=== PATIENT | male | born 1940 | race African-American/Black ===

== ENCOUNTER 2021-10-25 08:34 | Inpatient (IN) | payer MEDICARE ==
[~2021-10-25] VITALS: Ht 175.3 cm; Wt 76.7 kg
--- NOTE | 2021-10-25 08:41 | NUR ---
TO ER BED 6. [id number] C/O SOB SATTING AT 90RA, 94 AT 15LPM, DIARRHEA, VOMITING X2DAYS TACHY AT 116. PT IS AFEBRILE 98.3 RECTALLY, A&OX3.DR BARAJAS AT BEDSIDE. PT ATTACHED TO MONITOR. RT AND DR BARAJAS AT BEDSIDE.
[2021-10-25] MEDS ORDERED: TOLT4CAP14 PO (08:42)
[2021-10-25] MEDS ORDERED: METF-442 PO (08:42)
[2021-10-25] MEDS ORDERED: HYDR-3980 PO (08:42)
[2021-10-25] MEDS ORDERED: ALFU10TA10 PO (08:42)
--- NOTE | 2021-10-25 08:46 | NUR ---
IV ESTABLIHSED L AC 18G, LABS DRAWN AND COLLECTED AT BEDSIDE. RAPID COVID COLLECTED AND SENT.
--- NOTE | 2021-10-25 08:50 | NUR ---
CAME AND RECEIVED THIS PATIENT FROM AM SHIFT. PATIENT IS ATTACHED TO MONITOR, WITH REBREATHER MASK AT 15LPM, WITH PERIPHERAL LINE ON LEFT AC G18 WITH ONGOING IVF INFUSION, SITE CLEAN AND INTACT, TRANSFUSING WELL. WITH IFC F16 NEWLY INSERTED.
--- NOTE | 2021-10-25 08:53 | NUR ---
16FRENCH MADRID CATHETER PLACED, 200CC URINE OUTPUT. URINE COLLECTED AND SENT TO LAB.
[2021-10-25 08:59] LABS: ABG BASE EXCESS -23.5 mmol/L; ABG PCO2 12.4 mmHg (35.0-45.0); ABG PH 7.095 (7.350-7.450); ABG PO2 261.9 mmHg (75.0-100.0); COHb 0.3 % (0.5-1.5); MetHb 0.6 % (0.0-1.5); O2Hb 98.5 % (94.0-97.0); SITE, ABG Right Radial
[2021-10-25] MEDS ORDERED: IV NS 0.9% 500 ML BAG IV ONE (09:00)
[2021-10-25] MEDS ORDERED: LIDOCAINE 2% JEL UROJET 10 ML MM ONE ×2 (09:01→09:30)
--- NOTE | 2021-10-25 09:15 | NUR ---
PATIENT WAS WHEELED TO CT DEPARTMENT.
[2021-10-25 09:20] LABS: BASOPHILS # (AUTO) 0.1 K/uL (0.0-0.2); BASOPHILS % (AUTO) 0.4 % (0.0-2.0); HEMATOCRIT 55 % (39-51); HEMOGLOBIN 16.4 g/dL (13.5-17.5); LYMPHOCYTES # (AUTO) 0.5 K/uL (0.8-4.8); LYMPHOCYTES % (AUTO) 2.9 % (20.0-44.0); MEAN CORPUSCULAR HGB CONC 30 g/dl (31.0-36.0); MEAN CORPUSCULAR VOLUME 97 fL (80-96); MONOCYTES # (AUTO) 1.1 K/uL (0.1-1.30); MONOCYTES % (AUTO) 6.7 % (2.0-12.0); PLATELET COUNT (AUTO) 360 K/uL (150-450); RED BLOOD CELL COUNT(AUTO) 5.68 MIL/uL (4.5-6.0); WHITE BLOOD COUNT (AUTO) 16.7 K/uL (4.3-11.0)
[2021-10-25] MEDS ORDERED: IV NS 0.9% 1,000 ML BAG IV ONE (09:30)
[2021-10-25 09:40] LABS: BILIRUBIN,URINE SMALL (NEGATIVE); COLOR,URINE YELLOW (YELLOW); LEUKOCYTE ESTERASE ,URINE NEGATIVE (NEGATIVE); NITRITE, URINE POSITIVE (NEGATIVE); PH,URINE 5.5 (5.0-8.0); PROTEIN,URINE TRACE mg/dl (NEGATIVE); UGLUCOSE >=1000 mg/dL (NEGATIVE); UROBILINOGEN,URINE 0.2 EU/dL (0.2)
[2021-10-25 10:20] LABS: ALANINE AMINOTRANSFERASE 16 U/L (12-78); ALBUMIN 3.9 g/dL (3.4-5.0); ALKALINE PHOSPHATASE 98 U/L (46-116); ASPARTATE AMINOTRANSFERASE 13 U/L (15-37); BILIRUBIN,DIRECT 0.1 mg/dL (0.0-0.2); BILIRUBIN,TOTAL 0.5 mg/dL (0.2-1.0); CALCIUM, SERUM 9.2 mg/dL (8.5-10.1); CHLORIDE 84 mmol/L (98-107); CREATININE 3.6 mg/dL (0.6-1.3); SODIUM SERUM 135 mmol/L (136-145); TOTAL PROTEIN, SERUM 8.9 g/dL (6.4-8.2); UREA NITROGEN, BLOOD 50 mg/dL (7-18)
--- NOTE | 2021-10-25 10:29 | NUR ---
RACHELL RYDER [phone].
[2021-10-25 10:45] LABS: POTASSIUM 6.5 mmol/L (3.5-5.1)
[2021-10-25 10:46] LABS: CARBON DIOXIDE 5 mmol/L (21-32); GLUCOSE 835 mg/dL (74-106)
--- NOTE | 2021-10-25 10:51 | NUR ---
DR. BARAJAS INFORMED ABOUT CRITICAL RESULTS WITH ORDERS TO BE CARRIED OUT.
[2021-10-25] MEDS ORDERED: FUROSEMIDE 20 MG/2 ML VIAL ONE (10:55)
[2021-10-25] MEDS ORDERED: SODIUM BICARBONATE SYR 50 MEQ/50 ML DISP.SYRIN ONE (10:55)
[2021-10-25] MEDS ORDERED: INSULIN REGULAR, HUMAN 100 UNIT/ML 10 ML VIAL ONE (10:56)
[2021-10-25] MEDS ORDERED: FUROSEMIDE 40 MG/4 ML VIAL IV ONE (11:00)
[2021-10-25] MEDS ORDERED: IV NS 0.9% 1,000 ML IV PRN (11:00)
[2021-10-25] MEDS ORDERED: SODIUM BICARBONATE SYR 50 MEQ/50 ML DISP.SYRIN IV ONE (11:00)
[2021-10-25] MEDS: INSULIN REGULAR, HUMAN 100 UNITS in IV NS 0.9% 100 ML IV PRN ×4 (11:21→22:43)
--- NOTE | 2021-10-25 11:22 | NUR ---
INSULIN DRIP STARTED AT 5.05ML/HR, COUNTER SIGNED BY VINNY MURILLO
--- NOTE | 2021-10-25 11:23 | NUR ---
LASIX ORDER WAS PUT ON HOLD
[2021-10-25] MEDS ORDERED: CEFTRIAXONE 1GM BAG (ER ONLY) 1 GM/50 ML PIGGYBACK IV ONE (11:30)
[2021-10-25] MEDS ORDERED: ALBUTEROL FS 2.5 MG/3 ML VIAL.NEB ONE (11:36)
[2021-10-25] MEDS ORDERED: IPRATROPIUM NEB FS 0.5 MG/2.5 ML AMPUL.NEB ONE (11:36)
[2021-10-25] MEDS ORDERED: CEFTRIAXONE 1GM BAG (ER ONLY) 50 ML IV ONE (11:44)
[2021-10-25 11:46] LABS: RBC,URINE 0-2 /HPF (0-2); SQUAMOUS EPITHELIAL CELL,UR Rare /HPF (None Seen); WBC,URINE 0-2 /HPF (0-3)
[2021-10-25 11:47] LABS: BACTERIA,URINE Few /HPF (None Seen)
[2021-10-25 12:04] LABS: CALCIUM, SERUM 9.1 mg/dL (8.5-10.1); CHLORIDE 86 mmol/L (98-107); CREATININE 3.1 mg/dL (0.6-1.3); POTASSIUM 5.9 mmol/L (3.5-5.1); SODIUM SERUM 138 mmol/L (136-145); UREA NITROGEN, BLOOD 50 mg/dL (7-18)
--- NOTE | 2021-10-25 12:15 | NUR ---
ACCUCHECK DONE LATEST RESULT= HI. DR BARAJAS INFORMED
[2021-10-25 13:29] LABS: CARBON DIOXIDE 10 mmol/L (21-32); GLUCOSE 794 mg/dL (74-106)
[2021-10-25 13:30] LABS: PHOSPHORUS 8.4 mg/dL (2.5-4.9)
[2021-10-25] MEDS ORDERED: INSULIN REGULAR, HUMAN 100 UNIT in IV NS 0.9% 99 ML IV PRN ×2 (13:30)
[2021-10-25] MEDS ORDERED: ONDANSETRON HCL/PF 4 MG/2 ML VIAL IVP PRN (13:30)
[2021-10-25] MEDS ORDERED: MAGNESIUM HYDROXIDE 30 ML UDC PO PRN (13:30)
[2021-10-25] MEDS ORDERED: MAG HYDROX/AL HYDROX/SIMETH 30 ML UDC PO PRN (13:30)
[2021-10-25] MEDS ORDERED: ACETAMINOPHEN 325 MG TABLET PO PRN (13:30)
[2021-10-25] MEDS ORDERED: DEXTROSE 50%-WATER 50 ML DISP.SYRIN IV PRN (13:30)
[2021-10-25] MEDS ORDERED: Z GUARD REMEDY 4 OZ OINT TP PRN (13:30)
--- NOTE | 2021-10-25 14:00 | NUR ---
REPEAT ACCUCHECK DONE. RESULT HI. DR BARAJAS ORDERED TO INCREASE RATE TO 7UNITS/HR.
[2021-10-25 14:17] LABS: CALCIUM, SERUM 9.1 mg/dL (8.5-10.1); CHLORIDE 90 mmol/L (98-107); CREATININE 3.3 mg/dL (0.6-1.3); MAGNESIUM 3.1 mg/dL (1.8-2.4); PHOSPHORUS 7.3 mg/dL (2.5-4.9); POTASSIUM 5.3 mmol/L (3.5-5.1); SODIUM SERUM 140 mmol/L (136-145); UREA NITROGEN, BLOOD 52 mg/dL (7-18)
--- NOTE | 2021-10-25 14:19 | NUR ---
2DECHO AT BEDSIDE
[2021-10-25] MEDS: BLOOD SUGAR DIAGNOSTIC 1 EACH STRIP IN SCH ×10 (14:27→23:09)
[2021-10-25 14:37] LABS: CARBON DIOXIDE 9 mmol/L (21-32); GLUCOSE 922 mg/dL (74-106)
[2021-10-25 14:41] LABS: ACETAMINOPHEN < 10 ug/ml (10-30)
[2021-10-25 14:58] LABS: SERUM AMMONIA 276 umol/L (11-32)
--- NOTE | 2021-10-25 15:07 | NUR ---
DR HUIZAR CALL AND HE SAID JUST TO WATCH OUT FOR THE RESULT FOR AWHILE.
[2021-10-25] MEDS ORDERED: HEPARIN SODIUM, PORCINE 5000 UNITS/1 ML VIAL IV ONE ×2 (15:30→17:00)
--- NOTE | 2021-10-25 15:45 | NUR ---
DOUBLE CHECKED WITH PHARMACY THE INITIAL BOLUS DOSE. THEY WILL CHANGE FROM 6,200 TO 6,400units/hr
[2021-10-25] MEDS ORDERED: HEPARIN SODIUM, PORCINE 5000 UNITS/1 ML VIAL ONE (15:52)
[2021-10-25 15:55] LABS: CALCIUM, SERUM 8.7 mg/dL (8.5-10.1); CARBON DIOXIDE 12 mmol/L (21-32); CHLORIDE 97 mmol/L (98-107); CREATININE 3.3 mg/dL (0.6-1.3); PHOSPHORUS 3.5 mg/dL (2.5-4.9); POTASSIUM 3.8 mmol/L (3.5-5.1); SODIUM SERUM 143 mmol/L (136-145); UREA NITROGEN, BLOOD 51 mg/dL (7-18)
[2021-10-25 16:00] LABS: GLUCOSE 694 mg/dL (74-106)
[2021-10-25] MEDS: IV NS 0.9% 1,000 ML IV SCH ×3 (16:00→23:16)
--- NOTE | 2021-10-25 16:00 | NUR ---
HEPARIN 6,400units iv bolus given. THEN DRIP STARTED AT 1450units/hr.
--- NOTE | 2021-10-25 16:00 | NUR ---
DR HUIZAR MADE AWARE ABOUT LATEST FR=560nk/dl, with ongoing insulin infusion at 7u/hr
[2021-10-25] MEDS: HEPARIN INFUSION/D5W 500 ML IV PRN ×2 (16:44→22:49)
--- NOTE | 2021-10-25 17:13 | NUR ---
ACCUCHECK 583mg/dl, 4 units Regular Insulin given at LLQ of abdomen.
--- NOTE | 2021-10-25 18:00 | NUR ---
LATEST ACCUCHECK 596. INCREASE INSULIN DRIP TO 8u/hr. GAVE 4u REGULAR INSULIN SQ ON LLQ ABDOMEN.
--- NOTE | 2021-10-25 19:00 | NUR ---
ACCUCHECK BS 545mg/dl, 4 units regular insulin sq given RLQ ABDOMEN. still with insulin drip at 8u/hr.
--- NOTE | 2021-10-25 20:01 | NUR ---
ACCUCHECK DONE BS 457mg/dl. Infusion drip maintained to 8u/hr.
--- NOTE | 2021-10-25 20:04 | NUR ---
noted by quincy: 457, MD Yo notified.
--- NOTE | 2021-10-25 20:08 | NUR ---
ICU 253 PER RN EMERGENCY MANAGEMENT SYSTEM DIRECTOR
--- NOTE | 2021-10-25 21:00 | NUR ---
REPORT GIVEN TO VINNY BLANCO
[2021-10-25] MEDS ORDERED: ZOLPIDEM TARTRATE 5 MG TABLET PO PRN (22:00)
--- NOTE | 2021-10-25 22:46 | NUR ---
PUSHED PATIENT TO RM 253.
--- NOTE | 2021-10-25 22:50 | NUR ---
RN NOTE RECEIVED PATIENT FROM ER. ARRIVED VIA GURNEY. PATIENT ALERT ORIENTED X1. LETHARGIC, UNABLE TO ANSWER QUESTIONS AT THIS TIME. BREATHING EVEN AND UNLABORED. ON 2L/MIN VIA NASAL CANNULA. O2 SATURATION OF 100 PERCENT. ON TELE MONITORING, NO SIGNIFICANT DISTRESS. SKIN WARM AND DRY. RIGHT FOREARM 20G AND LEFT AC 20G, CURRENTLY INFUSING INSULIN REGULAR AT 7.1 MLS/HR & HEPARIN AT 1450 UNITS/HR. NO INFILTRATION. NO S/S OF BLEEDING ACCUCHECK MEASURED, 355. INDWELLING MADRID CATHETER INTACT, NO HEMATURIA. DRAINING NIRMAL COLORED URINE. SKIN ASSESSMENT DONE. BED LOW, IN LOCKED POSITION. CALL LIGHT WITHIN REACH.
[2021-10-25 23:01] VITALS: BP 137/78
--- NOTE | 2021-10-25 23:16 | NUR ---
RN NOTE BS 295 INSULIN DRIP REDUCED TO 5.9 UNITS/HR FROM 7.1 UNITS/HR
[2021-10-25 23:30] VITALS: BP 130/76
[2021-10-26] VITALS (28 sets, daily range): BP systolic 124–160; BP diastolic 65–115
[2021-10-26] MEDS: BLOOD SUGAR DIAGNOSTIC 1 EACH STRIP IN SCH ×15 (00:02→21:22)
--- NOTE | 2021-10-26 00:13 | NUR ---
RN NOTE RECIEVED CALL FROM LAB AT 0010, APTT OF 98.9. PER PROTOCOL, HOLD HEPARIN FOR 1 HOUR, THEN DECREASE DRIP BY 3 UNITS/KG/H = 1200 UNITS/H
[2021-10-26 01:08] LABS: CALCIUM, SERUM 9.1 mg/dL (8.5-10.1); CARBON DIOXIDE 24 mmol/L (21-32); CHLORIDE 106 mmol/L (98-107); CREATININE 2.6 mg/dL (0.6-1.3); GLUCOSE 298 mg/dL (74-106); SODIUM SERUM 147 mmol/L (136-145); UREA NITROGEN, BLOOD 45 mg/dL (7-18)
[2021-10-26] MEDS: IV D5/0.45 NACL 1,000 ML IV PRN ×2 (02:03→12:08)
--- NOTE | 2021-10-26 02:07 | NUR ---
RN NOTE BLOOD SUGAR 190. PER MD ORDER, SWITCH IVF TO D5 1/2 NS AT 100 CC/HR. NEW ORDER NOTED AND CARRIED OUT.
[2021-10-26 05:34] LABS: BASOPHILS # (AUTO) 0.1 K/uL (0.0-0.2); BASOPHILS % (AUTO) 0.5 % (0.0-2.0); HEMATOCRIT 46 % (39-51); LYMPHOCYTES # (AUTO) 0.5 K/uL (0.8-4.8); LYMPHOCYTES % (AUTO) 2.4 % (20.0-44.0); MEAN CORPUSCULAR HGB CONC 32 g/dl (31.0-36.0); MEAN CORPUSCULAR VOLUME 88 fL (80-96); MONOCYTES # (AUTO) 1.7 K/uL (0.1-1.30); MONOCYTES % (AUTO) 8.7 % (2.0-12.0); NEUTROPHILS # (AUTO) 17.2 K/uL (1.8-8.9); NEUTROPHILS % (AUTO) 88.4 % (43.0-81.0); PLATELET COUNT (AUTO) 253 K/uL (150-450); RED BLOOD CELL COUNT(AUTO) 5.26 MIL/uL (4.5-6.0); WHITE BLOOD COUNT (AUTO) 19.5 K/uL (4.3-11.0)
[2021-10-26 05:57] LABS: CALCIUM, SERUM 8.6 mg/dL (8.5-10.1); CARBON DIOXIDE 27 mmol/L (21-32); CHLORIDE 109 mmol/L (98-107); CREATININE 2.3 mg/dL (0.6-1.3); GLUCOSE 213 mg/dL (74-106); MAGNESIUM 2.6 mg/dL (1.8-2.4); PHOSPHORUS 2.9 mg/dL (2.5-4.9); POTASSIUM 3.8 mmol/L (3.5-5.1); SODIUM SERUM 149 mmol/L (136-145); UREA NITROGEN, BLOOD 43 mg/dL (7-18)
[2021-10-26] MEDS: HEPARIN SODIUM, PORCINE 5000 UNITS/1 ML VIAL SQ SCH ×2 (09:00→21:25)
[2021-10-26 09:21] LABS: CALCIUM, SERUM 9.1 mg/dL (8.5-10.1); CARBON DIOXIDE 24 mmol/L (21-32); CHLORIDE 108 mmol/L (98-107); CREATININE 2.1 mg/dL (0.6-1.3); GLUCOSE 209 mg/dL (74-106); POTASSIUM 3.6 mmol/L (3.5-5.1); SODIUM SERUM 144 mmol/L (136-145); UREA NITROGEN, BLOOD 40 mg/dL (7-18)
--- NOTE | 2021-10-26 11:56 | NUR ---
RN NOTE RECEIVED CALL FROM LAB, CRITICAL VALUE APTT 103.6. PT HEPARIN ALREADY D/C.
--- NOTE | 2021-10-26 11:57 | NUR ---
RN NOTE PT NOTED VOMITING DARK COFFEE GROUND CONSISTENCY OF ABOUT 50CC. CN MADE AWARE. WILL CONTINUE TO MONITOR. V/S WNL. ABD SOFT TO PALPATE. PT NOT IN DISTRESS, NO COMPLAINTS OF ABD PAIN.
[2021-10-26] MEDS ORDERED: DEXTROSE 50%-WATER 50 ML DISP.SYRIN IV PRN (13:30)
[2021-10-26 13:32] LABS: CARBON DIOXIDE 24 mmol/L (21-32); CHLORIDE 108 mmol/L (98-107); GLUCOSE 214 mg/dL (74-106); POTASSIUM 3.4 mmol/L (3.5-5.1); SODIUM SERUM 145 mmol/L (136-145); UREA NITROGEN, BLOOD 36 mg/dL (7-18)
[2021-10-26] MEDS ORDERED: AMIODARONE 150 MG in IV D5W 100 ML IV ONE (14:00)
--- NOTE | 2021-10-26 14:31 | NUR ---
RN NOTE AMIO DRIP LOADING DOSE 150MG STARTED, BP-127/91 HR-149. WILL CONTINUE TO MONITOR
[2021-10-26] MEDS: AMIODARONE 450 MG in IV D5W 241 ML IV PRN ×2 (14:44→22:40)
[2021-10-26] MEDS: INSULIN REGULAR, HUMAN 100 UNIT/ML 3 ML VIAL SQ PRN ×2 (18:09→21:24)
--- NOTE | 2021-10-26 19:20 | NUR ---
RN NOTE PT RESTING IN BED, STILL NOTED LETHARGIC. ON O2 @2L VIA NC. NOT IN RESPI DISTRESS. WITH IV ACCESS ON RFA AND LAC WITH IVF RUNNING D51/2NS @100/HR. PT ON AMIO DRIP @1MG/MIN.NEEDS ATTENDED. SAFETY MAINTAINED.
--- NOTE | 2021-10-26 20:00 | NUR ---
ICU NOTES Received patient lethargic arousable oriented x1.Patient reoriented to place and time.DX: DKA,AFIB with RVR Cooperative.Afebrile.Respiration even and unlabored with O2 2L NC saturation 98 %.Afib with RVR 120'S.Continue with Amiodarone gtt now infusing at 1 mg/min untill 2043 then will titrate down to 0.5 mg/min.Denies pain or any discomfort.IVF D5 1/2 NS infusing both sites intact.Offered water able to drink good amount and fall back to sleep.Fall/Aspiration precaution implemented.Bed in lowest position bed alarm operations representative light at bedside.FC to gravity.Turned and repositioned.Continue monitoring.
--- NOTE | 2021-10-26 21:35 | NUR ---
ICU NOTES Patient rhythm converted to SR. VS stable.
[2021-10-27] VITALS (31 sets, daily range): BP systolic 91–173; BP diastolic 61–99
[2021-10-27] MEDS: IV D5/0.45 NACL 1,000 ML IV PRN (02:59)
--- NOTE | 2021-10-27 04:38 | NUR ---
ICU NOTES Patient BP elevated 170's.Jordan Colon notified.Orders received and carried out.
[2021-10-27 04:59] LABS: BASOPHILS % (AUTO) 0.1 % (0.0-2.0); HEMATOCRIT 43 % (39-51); LYMPHOCYTES # (AUTO) 0.7 K/uL (0.8-4.8); MEAN CORPUSCULAR HGB CONC 33 g/dl (31.0-36.0); MEAN CORPUSCULAR VOLUME 88 fL (80-96); MONOCYTES # (AUTO) 1.4 K/uL (0.1-1.30); MONOCYTES % (AUTO) 10.6 % (2.0-12.0); NEUTROPHILS # (AUTO) 11.1 K/uL (1.8-8.9); NEUTROPHILS % (AUTO) 84.3 % (43.0-81.0); PLATELET COUNT (AUTO) 219 K/uL (150-450); RED BLOOD CELL COUNT(AUTO) 4.81 MIL/uL (4.5-6.0); WHITE BLOOD COUNT (AUTO) 13.2 K/uL (4.3-11.0)
[2021-10-27] MEDS ORDERED: hydrALAZINE HCL IV 20 MG VIAL IV PRN (05:00)
[2021-10-27 05:12] LABS: ALANINE AMINOTRANSFERASE 14 U/L (12-78); ALBUMIN 2.9 g/dL (3.4-5.0); ALKALINE PHOSPHATASE 84 U/L (46-116); ASPARTATE AMINOTRANSFERASE 18 U/L (15-37); BILIRUBIN,TOTAL 0.6 mg/dL (0.2-1.0); CALCIUM, SERUM 8.6 mg/dL (8.5-10.1); CARBON DIOXIDE 25 mmol/L (21-32); CHLORIDE 107 mmol/L (98-107); CREATININE 1.7 mg/dL (0.6-1.3); MAGNESIUM 2.5 mg/dL (1.8-2.4); PHOSPHORUS 2.6 mg/dL (2.5-4.9); POTASSIUM 3.5 mmol/L (3.5-5.1); SODIUM SERUM 144 mmol/L (136-145); UREA NITROGEN, BLOOD 30 mg/dL (7-18)
[2021-10-27 05:35] LABS: GLUCOSE 381 mg/dL (74-106)
--- NOTE | 2021-10-27 05:45 | NUR ---
ICU NOTES sound recording technician called regarding patient blood sugar this morning 381.Called TONNY Parra and made him aware patient on IVF of D5 1/2 NS.Order received to change it to NS 100 ML/HR.
[2021-10-27] MEDS: IV NS 0.9% 1,000 ML IV SCH ×2 (05:52→15:29)
--- NOTE | 2021-10-27 07:05 | NUR ---
RN NOTES Received patient on bed, lethargic arousable oriented x1. follows simple command ,Respiration even and unlabored with O2 2L NC saturation 98 %. sr on monitor , hr in 80's , Continue with Amiodarone gtt now infusing at .5 mg/min , Denies pain or any discomfort.IVF NS infusing at 100cc/hr , Fall/Aspiration precaution implemented.Bed in lowest position bed alarm impregnation operator light at bedside.FC to gravity.Turned and repositioned.Continue monitoring.
[2021-10-27] MEDS: INSULIN REGULAR, HUMAN 100 UNIT/ML 3 ML VIAL SQ PRN ×4 (07:42→23:20)
[2021-10-27] MEDS: BLOOD SUGAR DIAGNOSTIC 1 EACH STRIP IN SCH ×4 (07:45→22:37)
[2021-10-27] MEDS: AMIODARONE HCL 200 MG TABLET PO SCH ×3 (08:46→16:37)
[2021-10-27] MEDS: APIXABAN 2.5 MG TABLET PO SCH ×2 (08:46→16:37)
[2021-10-27] MEDS: INSULIN GLARGINE, 100 UNIT/ML CARTRIDGE SQ SCH ×2 (15:38→22:38)
--- NOTE | 2021-10-27 17:35 | NUR ---
RN NOTES PT TRANSFERED TO ROOM 116-1 , TELE BED, VIA ACLS PROTOCAL , REPORT GIVEN TO JESÚS CASILLAS FOR CONTINUITY OF CARE
--- NOTE | 2021-10-27 17:45 | NUR ---
RN NOTE RECEIVED PATIENT FROM ICU. BEDSIDE REPORT RECEIVED FROM REESE CASILLAS. PATIENT AWAKE, ALERT/ORIENTED X1. ON O2 2LPM VIA NC, TOLERATING WELL WITH SATURATION OF 99%. BREATHING EVEN AND UNLABORED. NO SOB OR ANY ACUTE DISTRESS NOTED. ON TELE MONITOR READING NSR WITH HR OF 84. PATIENT REMAINS AFEBRILE. VITAL SIGNS: TEMP-98.4, HR-84, RR-20, BP-157/87. KEPT PATIENT CLEAN DRY AND COMFORTABLE. ALL NEEDS ANTICIPATED. ALL SAFETY MEASURES IMPLEMENTED. HOB ELEVATED, BED LOCKED AND IN LOWEST POSITION WITH SIDE RAILS UP X 2, CALL LIGHT WITHIN REACH. BED ALARM ON. WILL CONTINUE TO MONITOR AND ASSESS PATIENT DURING SHIFT.
--- NOTE | 2021-10-27 19:22 | NUR ---
RN CLOSING NOTES NO SIGNIFICANT CHANGES THROUGHOUT SHIFT. PATIENT REMAINS IN STABLE CONDITION. PATIENT IN BED RESTING. PATIENT ON O2 2LPM VIA NC, TOLERATING WELL. BREATHING EVEN AND UNLABORED. NO SOB OR ANY ACUTE DISTRESS NOTED. IV ACCESS ON RIGHT HAND AND GERALDINE MIDLINE INFUSING NS AT 100 ML/HR, NO SIGNS OF INFILTRATION NOTED ON SITE. ALL NEEDS ANTICIPATED. KEPT PATIENT CLEAN DRY AND COMFORTABLE. ALL SAFETY MEASURES IMPLEMENTED. CALL LIGHT WITHIN REACH. ENDORSED TO RESEARCH SCHOLAR NURSE FOR CONTINUITY OF CARE.
--- NOTE | 2021-10-27 21:33 | NUR ---
recyclable materials distributor Opening Note Pt received in bed, asleep, did not respond when introduced self. Pt on 2L NC; no s/s of resp distress, no SOB, non-labored and equal breathing; appears comfortable. Pt on external monitor that shows Aflutter but goes back to SE, HR in the 90s. Travis intact and patent draining off side of bed with clear and yellow urine. Pt noted to have GERALDINE midline and right hand 22G SL; both are intact and patent with no s/s of infiltration; NS at 100 ml/hr. Bed in lowest position, call light within reach, side rails up x3. Will continue to monitor throughout the night.
[2021-10-28] VITALS: BP 153/84
[2021-10-28] MEDS: IV NS 0.9% 1,000 ML IV SCH ×3 (03:29→22:07)
[2021-10-28 04:00] VITALS: BP 144/80
--- NOTE | 2021-10-28 06:50 | NUR ---
data typist Closing Note Pt in bed, A&O x3, pt noted to fall asleep during middle of conversation. Pt remains on 2L NC; no s/s of resp distress, no SOB, non-labored and equal breathing. Pt continues to go back and forth between Aflutter and SR, HR 82-93. Travis intact and patent draining off side of bed with clear and yellow urine. Pt's GERALDINE midline and right hand 22G SL; both are intact and patent with no s/s of infiltration; NS at 100 ml/hr. Bed in lowest position, call light within reach, side rails up x3. Will endorse to dayshift nurse to continue care.
[2021-10-28 07:04] LABS: BASOPHILS % (AUTO) 0.3 % (0.0-2.0); EOSINOPHILS % (AUTO) 0.3 % (0.0-6.0); HEMATOCRIT 40 % (39-51); HEMOGLOBIN 13.3 g/dL (13.5-17.5); LYMPHOCYTES # (AUTO) 0.7 K/uL (0.8-4.8); LYMPHOCYTES % (AUTO) 7.7 % (20.0-44.0); MEAN CORPUSCULAR HGB CONC 33 g/dl (31.0-36.0); MEAN CORPUSCULAR VOLUME 88 fL (80-96); MONOCYTES # (AUTO) 0.7 K/uL (0.1-1.30); MONOCYTES % (AUTO) 8.1 % (2.0-12.0); NEUTROPHILS # (AUTO) 7.2 K/uL (1.8-8.9); NEUTROPHILS % (AUTO) 83.6 % (43.0-81.0); PLATELET COUNT (AUTO) 178 K/uL (150-450); WHITE BLOOD COUNT (AUTO) 8.6 K/uL (4.3-11.0)
[2021-10-28 07:43] LABS: ALBUMIN 2.5 g/dL (3.4-5.0); BILIRUBIN,TOTAL 0.7 mg/dL (0.2-1.0); CREATININE 1.1 mg/dL (0.6-1.3); MAGNESIUM 2.3 mg/dL (1.8-2.4); PHOSPHORUS 2.3 mg/dL (2.5-4.9); POTASSIUM 3.2 mmol/L (3.5-5.1); TOTAL PROTEIN, SERUM 6.2 g/dL (6.4-8.2)
--- NOTE | 2021-10-28 07:55 | NUR ---
DR CATALAN MADE AWARE REGARDING HEART RHYTHM AFIB/ALUTTER/SINUS RHYTHM FLUCTUATION.
[2021-10-28 08:00] VITALS: BP 154/78
[2021-10-28] MEDS: BLOOD SUGAR DIAGNOSTIC 1 EACH STRIP IN SCH ×4 (08:11→21:37)
[2021-10-28] MEDS: AMIODARONE HCL 200 MG TABLET PO SCH ×3 (09:04→17:10)
[2021-10-28] MEDS: APIXABAN 2.5 MG TABLET PO SCH ×2 (09:06→17:12)
[2021-10-28] MEDS: INSULIN REGULAR, HUMAN 100 UNIT/ML 3 ML VIAL SQ PRN ×4 (09:11→21:36)
[2021-10-28] MEDS: POTASSIUM CHLORIDE 20 MEQ TAB.PRT.SR PO SCH ×3 (09:21→11:28)
[2021-10-28] MEDS: NEUTRA PHOS 1 POWD.PACKET PO SCH ×2 (09:24→17:13)
--- NOTE | 2021-10-28 10:25 | NUR ---
DR CATALAN MADE AWARE REGARDING HEART RHYTHM AFIB/AFLUTTER/SINUS RHYTHM FLUCTUATION AGAIN
[2021-10-28 12:00] VITALS: BP 129/69
[2021-10-28] MEDS: DIGOXIN INJ 0.5 MG/2 ML AMPUL IV SCH ×3 (12:30→23:15)
[2021-10-28 16:00] VITALS: BP 136/69
--- NOTE | 2021-10-28 19:25 | NUR ---
RN NOTE PT RECEIVED IN BED. PT IS ON 2L OF O2 VIA NC SHOWING NO S/SX OF RESP DISTRESS/SOB. BREATHING EVEN AND UNLABORED. IV ACCESS NOTED ON RIGHT UPPER ARM ML AND RIGHT HAND. LINE FLUSHED, PATENT, AND INTACT WITH NO SIGNS OF INFILTRATION. 0.9% NS RUNNING AT 100 CC/HR. ALL SAFETY MEASURES IMPLEMENTED. CALL LIGHT WITHIN REACH. BED LOCKED AND IN LOWEST POSITION. SIDE RAILS UP. WILL CONTINUE TO MONITOR AND ASSESS FOR ANY CHANGES DURING SHIFT.
[2021-10-28 20:00] VITALS: BP_SYST 139; BP_SYST 91; BP_DIAS 66; BP_DIAS 67
[2021-10-28] MEDS: INSULIN GLARGINE, 100 UNIT/ML CARTRIDGE SQ SCH (21:37)
[2021-10-29] VITALS: BP 134/65
[2021-10-29 04:00] VITALS: BP 127/62
--- NOTE | 2021-10-29 06:23 | NUR ---
RN NOTE NO CHANGES IN PT CONDITION DURING SHIFT. PT IS ON 2L OF O2 VIA NC SHOWING NO S/SX OF RESP DISTRESS/SOB. BREATHING EVEN AND UNLABORED. PT IS A/XO2-3. IV ACCESS NOTED ON RIGHT UPPER ARM ML AND RIGHT HAND WITH 0.9% NS RUNNING AT 100 CC/HR. ALL SAFETY MEASURES IMPLEMENTED. PT KEPT CLEAN AND COMFORTABLE. ALL DUE MEDS GIVEN ORDERED. CALL LIGHT WITHIN REACH. BED LOCKED AND IN LOWEST POSITION. SIDE RAILS UP. WILL ENDORSE TO MORNING SHIFT RN FOR NORMA.
--- NOTE | 2021-10-29 07:30 | NUR ---
ACCOUNTS PAYABLES CLERK AM NOTE PT RECEIVED IN BED. EYES CLOSED, RESPONDS TO NAME AND TOUCH, ALERT ORIENTED X 2-3. ON 2L O2 NASAL CANULA, O2 SAT AT 98%, NO ACUTE DISTRESS, RESPIRATION UNLABORED, DENIES CHEST PAIN/DISCOMFORT, SR HR 68 ON MONITOR. GERALDINE MIDLINE WITH NS AT 100 ML/HR INFUSING WELL, RT HAND 22G, IV ACCESS, FLUSHES WELL, BOTH SITES CLEAR. ON CCHO DIET. TOTAL ASSIST. SEE NURSING FLOWSHEET FOR SKIN ISSUES. MADRID CATH IN PLACE WITH ADEQUATE AMOUNT OF URINE OUTPUT. ALL SAFETY PRECAUTIONS IN PLACE. BED LOCKED IN LOWEST POSITION, BED ALARM ON. CALL LIGHT WITHIN REACH. WILL TURN AND REPOSITION Q 2 HOURS. WILL CONTINUE TO MONITOR.
[2021-10-29 07:40] LABS: BASOPHILS % (AUTO) 0.2 % (0.0-2.0); EOSINOPHILS % (AUTO) 0.7 % (0.0-6.0); HEMATOCRIT 40 % (39-51); HEMOGLOBIN 13.2 g/dL (13.5-17.5); LYMPHOCYTES # (AUTO) 0.6 K/uL (0.8-4.8); LYMPHOCYTES % (AUTO) 6.7 % (20.0-44.0); MEAN CORPUSCULAR HGB CONC 33 g/dl (31.0-36.0); MEAN CORPUSCULAR VOLUME 87 fL (80-96); MONOCYTES # (AUTO) 0.7 K/uL (0.1-1.30); MONOCYTES % (AUTO) 7.8 % (2.0-12.0); NEUTROPHILS # (AUTO) 8.1 K/uL (1.8-8.9); NEUTROPHILS % (AUTO) 84.6 % (43.0-81.0); PLATELET COUNT (AUTO) 168 K/uL (150-450); RED BLOOD CELL COUNT(AUTO) 4.58 MIL/uL (4.5-6.0); WHITE BLOOD COUNT (AUTO) 9.6 K/uL (4.3-11.0)
[2021-10-29 08:00] VITALS: BP 122/66
[2021-10-29] MEDS: IV NS 0.9% 1,000 ML IV SCH (08:04)
[2021-10-29] MEDS: BLOOD SUGAR DIAGNOSTIC 1 EACH STRIP IN SCH ×4 (08:04→21:16)
[2021-10-29] MEDS: INSULIN REGULAR, HUMAN 100 UNIT/ML 3 ML VIAL SQ PRN ×2 (08:32→21:19)
[2021-10-29] MEDS: AMIODARONE HCL 200 MG TABLET PO SCH ×3 (08:33→17:52)
[2021-10-29] MEDS: APIXABAN 2.5 MG TABLET PO SCH ×2 (08:35→17:55)
[2021-10-29 08:42] LABS: ALANINE AMINOTRANSFERASE 8 U/L (12-78); ALBUMIN 2.1 g/dL (3.4-5.0); ALKALINE PHOSPHATASE 69 U/L (46-116); ASPARTATE AMINOTRANSFERASE 16 U/L (15-37); BILIRUBIN,TOTAL 0.4 mg/dL (0.2-1.0); CALCIUM, SERUM 7.7 mg/dL (8.5-10.1); CARBON DIOXIDE 25 mmol/L (21-32); CHLORIDE 107 mmol/L (98-107); GLUCOSE 164 mg/dL (74-106); MAGNESIUM 1.8 mg/dL (1.8-2.4); PHOSPHORUS 2.4 mg/dL (2.5-4.9); POTASSIUM 3.3 mmol/L (3.5-5.1); SODIUM SERUM 141 mmol/L (136-145); TOTAL PROTEIN, SERUM 5.5 g/dL (6.4-8.2)
--- NOTE | 2021-10-29 08:45 | NUR ---
RN NOTES STOOL SPECIMEN #1 COLLECTED AND SENT TO LABORATORY FOR C DIFF TEST. PATIENT PER ANALYTICAL CHEMIST HAS BEEN HAVING DIARRHEA 4X.
--- NOTE | 2021-10-29 09:30 | NUR ---
LENS CUTTER NOTES DUE MEDS GIVEN
[2021-10-29 09:39] LABS: UREA NITROGEN, BLOOD 15 mg/dL (7-18)
[2021-10-29] MEDS ORDERED: POTASSIUM CHLORIDE 20 MEQ TAB.PRT.SR PO SCH (10:00)
[2021-10-29] MEDS ORDERED: K PHOS NEUTRAL 250 MG TABLET PO ONE (10:00)
[2021-10-29 12:00] VITALS: BP 145/75
[2021-10-29 16:00] VITALS: BP 165/83
--- NOTE | 2021-10-29 19:20 | NUR ---
RN NOTE PT RECEIVED IN BED. PT IS ON 2L OF O2 VIA NC SHOWING NO S/SX OF RESP DISTRESS/SOB. BREATHING EVEN AND UNLABORED. IV ACCESS NOTED ON RIGHT UPPER ARM ML AND RIGHT HAND. LINE FLUSHED, PATENT, AND INTACT WITH NO SIGNS OF INFILTRATION. ALL SAFETY MEASURES IMPLEMENTED. CALL LIGHT WITHIN REACH. BED LOCKED AND IN LOWEST POSITION. SIDE RAILS UP. WILL CONTINUE TO MONITOR AND ASSESS FOR ANY CHANGES DURING SHIFT.
--- NOTE | 2021-10-29 19:45 | NUR ---
RN NOTES ALL NEEDS MET. PATIENT RESTING. PM CARE DONE EARLIER. ASSISTED IN TURNING AND REPOSITIONING. BLOOD SUGAR CHECKED ACCORDINGLY. COLLECTED 1 OUT OF 3 STOOL SPECIMEN AT 0825 FOR C DIFF TEST AND BROUGHT TO LABORATORY. ENDORSED TO NEXT SHIFT, WILL NEED 2 MORE SPECIMEN WITHIN 24 HOURS
[2021-10-29 20:00] VITALS: BP 156/76
[2021-10-29] MEDS: INSULIN GLARGINE, 100 UNIT/ML CARTRIDGE SQ SCH (21:21)
[2021-10-30] VITALS: BP 157/86
[2021-10-30 04:00] VITALS: BP 150/88
--- NOTE | 2021-10-30 06:49 | NUR ---
RN NOTE NO CHANGES IN PT CONDITION DURING SHIFT. PT IS ON 2L OF O2 VIA NC SHOWING NO S/SX OF RESP DISTRESS/SOB. BREATHING EVEN AND UNLABORED. IV ACCESS NOTED ON RIGHT UPPER ARM ML AND RIGHT HAND. LINE FLUSHED, PATENT, AND INTACT WITH NO SIGNS OF INFILTRATION. ALL SAFETY MEASURES IMPLEMENTED. ALL DUE MEDS GIVEN ORDERED. PT KEPT CLEAN AND COMFORTABLE. CALL LIGHT WITHIN REACH. BED LOCKED AND IN LOWEST POSITION. SIDE RAILS UP. WILL ENDORSE TO MORNING SHIFT RN FOR NORMA.
[2021-10-30 07:33] LABS: BASOPHILS % (AUTO) 0.1 % (0.0-2.0); EOSINOPHILS % (AUTO) 1.2 % (0.0-6.0); HEMATOCRIT 41 % (39-51); HEMOGLOBIN 13.6 g/dL (13.5-17.5); LYMPHOCYTES # (AUTO) 0.8 K/uL (0.8-4.8); LYMPHOCYTES % (AUTO) 10.5 % (20.0-44.0); MEAN CORPUSCULAR HGB CONC 33 g/dl (31.0-36.0); MEAN CORPUSCULAR VOLUME 88 fL (80-96); MONOCYTES # (AUTO) 0.9 K/uL (0.1-1.30); MONOCYTES % (AUTO) 12.2 % (2.0-12.0); NEUTROPHILS # (AUTO) 5.8 K/uL (1.8-8.9); PLATELET COUNT (AUTO) 180 K/uL (150-450); WHITE BLOOD COUNT (AUTO) 7.6 K/uL (4.3-11.0)
--- NOTE | 2021-10-30 07:41 | NUR ---
RN OPENING NOTE PATIENT RECEIVED IN BED, AWAKE, A&OX2-3. PATIENT ON 2L O2 NC WITH NO SIGNS OF LABORED BREATHING AT THIS TIME. MADRID CATH IN PLACE. RIGHT UA MIDLINE IN PLACE. BED LOCKED AND IN LOWEST POSITION, CALL LIGHT WITHIN REACH, 3 SIDE RAILS UP.
[2021-10-30] MEDS: BLOOD SUGAR DIAGNOSTIC 1 EACH STRIP IN SCH ×3 (07:48→16:56)
[2021-10-30 07:49] LABS: CALCIUM, SERUM 8.2 mg/dL (8.5-10.1); CREATININE 0.9 mg/dL (0.6-1.3); MAGNESIUM 1.7 mg/dL (1.8-2.4); PHOSPHORUS 2.8 mg/dL (2.5-4.9); POTASSIUM 3.1 mmol/L (3.5-5.1)
[2021-10-30 08:00] VITALS: BP 152/82
[2021-10-30] MEDS: AMIODARONE HCL 200 MG TABLET PO SCH ×3 (08:36→16:20)
[2021-10-30] MEDS: INSULIN REGULAR, HUMAN 100 UNIT/ML 3 ML VIAL SQ PRN ×2 (08:44→12:10)
[2021-10-30] MEDS: APIXABAN 2.5 MG TABLET PO SCH ×2 (08:44→16:22)
[2021-10-30] MEDS ORDERED: POTASSIUM CHLORIDE 20 MEQ TAB.PRT.SR PO ONE (10:30)
[2021-10-30] MEDS ORDERED: MAGNESIUM OXIDE 400 MG TABLET PO ONE (11:30)
[2021-10-30 12:00] VITALS: BP 146/84
[2021-10-30] MEDS ORDERED: AMIO200T7 PO (12:18)
[2021-10-30] MEDS ORDERED: APIX2.5T PO (12:18)
[2021-10-30] MEDS ORDERED: Insulin Glargine,Hum SQ (12:19)
[2021-10-30] MEDS ORDERED: INSU100V28 SQ (12:19)
--- NOTE | 2021-10-30 13:16 | NUR ---
patient positive for cdiff per micro angelic jewelry bench molder notified,cm notified,continue isolation precaution.
[2021-10-30] MEDS ORDERED: VANC125C11 PO (14:08)
[2021-10-30 16:00] VITALS: BP 160/80
[2021-10-30] MEDS ORDERED: GLUCERNA SHAKE 237 ML CAN PO SCH (17:00)
--- NOTE | 2021-10-30 17:33 | NUR ---
RN NOTE REPORT GIVEN TO TRES CASILLAS AT [facility]. DAUGHTER BRITNI CALLED AND MADE AWARE OF TRANSFER SCHEDULED FOR 1800.
[2021-10-30 18:21] VITALS: BP 181/95
--- NOTE | 2021-10-30 18:41 | NUR ---
RN NOTE PATIENT DISCHARGED ORDERED. REPORT GIVEN TO SNF FOR NORMA, DAUGHTER AWARE. PATIENT STABLE ON 2L O2 NC WITH NO SIGNS OF LABORED BREATHING. MADRID CATH AND MIDLINE LEFT IN PLACE PER SNF REQUEST.
== END 2021-10-30 18:38 | DRG 637 ==
LOC: ER 08:37 → EDBD 08:37 → TRANSITION 13:58 → ICU 20:15 → TELE1 10-27 17:23
PROVIDERS: ADMIT Family Medicine; ATTEND Nurse Practitioner Acute Care
PROC: 05H533Z Insertion of Infusion Device into Right Subclavian Vein, Percutaneous Approach (ICD-10-PCS; principal; 2021-10-27)
PROC: B546ZZA Ultrasonography of Right Subclavian Vein, Guidance (ICD-10-PCS; 2021-10-27)
DX: E11.10 Type 2 diabetes mellitus with ketoacidosis without coma (principal); N17.0 Acute kidney failure with tubular necrosis; G93.41 Metabolic encephalopathy; E87.1 Hypo-osmolality and hyponatremia; A04.72 Enterocolitis due to Clostridium difficile, not specified as recurrent; I48.91 Unspecified atrial fibrillation; E83.42 Hypomagnesemia; E88.09 Other disorders of plasma-protein metabolism, not elsewhere classified; N40.0 Benign prostatic hyperplasia without lower urinary tract symptoms; E87.5 Hyperkalemia; I12.9 Hypertensive chronic kidney disease with stage 1 through stage 4 chronic kidney disease, or unspecified chronic kidney disease; N18.9 Chronic kidney disease, unspecified; Z79.84 Long term (current) use of oral hypoglycemic drugs; Z20.822 Contact with and (suspected) exposure to COVID-19; E11.22 Type 2 diabetes mellitus with diabetic chronic kidney disease
CPT/HCPCS: 36410; 36415; 36600; 70450-TC; 71045-TC; 76770-TC; 80048-TC; 80053-TC; 80076-TC; 81001; 82010-TC; 82140-TC; 82803-TC; 82962-TC; 83605-TC; 83735-TC; 84100-TC; 84484-TC; 85025-TC; 85730-TC; 87040-TC; 87081-TC; 87086-TC; 93307-TC; 97116-TC; 97530-TC; A6403; C9803; G0378; J0282; J0360; J0696; J1160; J1644; J1815; J1940; J3490; J7030; J7040; J7060

== ENCOUNTER 2024-06-24 07:22 | Inpatient (IN) | payer MEDICARE ==
[~2024-06-24] VITALS: Ht 182.9 cm; Wt 93.4 kg
[~2024-06-24 07:22] MED LIST: AMIO200T7 PO; APIX2.5T PO; INSU100V28 SQ; Insulin Glargine,Hum SQ; VANC125C11 PO
[2024-06-24] MEDS: ONDANSETRON HCL/PF - ER 4 MG/2 ML VIAL IV ONE (07:35)
[2024-06-24] MEDS ORDERED: ONDANSETRON HCL/PF 4 MG/2 ML VIAL ONE (07:45)
[2024-06-24] MEDS: CEFEPIME 1 GM in IV D5W 50 ML IV ONE (07:55)
[2024-06-24 08:03] LABS: CALCIUM, SERUM 8.6 mg/dL (8.5-10.1); CARBON DIOXIDE 22 mmol/L (21-32); CHLORIDE 95 mmol/L (98-107); GLUCOSE 221 mg/dL (74-106); POTASSIUM 3.2 mmol/L (3.5-5.1); SODIUM SERUM 133 mmol/L (136-145); UREA NITROGEN, BLOOD 12 mg/dL (7-18)
[2024-06-24 08:09] LABS: ALANINE AMINOTRANSFERASE 16 U/L (12-78); ALBUMIN 3.8 g/dL (3.4-5.0); ALKALINE PHOSPHATASE 53 U/L (46-116); ASPARTATE AMINOTRANSFERASE 16 U/L (15-37); BILIRUBIN,DIRECT 0.2 mg/dL (0.0-0.2); BILIRUBIN,TOTAL 0.4 mg/dL (0.2-1.0); TOTAL PROTEIN, SERUM 7.4 g/dL (6.4-8.2)
[2024-06-24 08:14] LABS: BASOPHILS % (AUTO) 0.3 % (0.0-2.0); EOSINOPHILS # (AUTO) 0.1 K/uL (0.0-0.7); EOSINOPHILS % (AUTO) 1.1 % (0.0-6.0); HEMATOCRIT 36 % (39-51); HEMOGLOBIN 12.3 g/dL (13.5-17.5); LYMPHOCYTES # (AUTO) 2.2 K/uL (0.8-4.8); LYMPHOCYTES % (AUTO) 22.4 % (20.0-44.0); MEAN CORPUSCULAR HEMOGLOBIN 31 PG (26.0-33.0); MEAN CORPUSCULAR HGB CONC 34 g/dl (31.0-36.0); MEAN CORPUSCULAR VOLUME 91 fL (80-96); MONOCYTES # (AUTO) 0.9 K/uL (0.1-1.30); MONOCYTES % (AUTO) 9.6 % (2.0-12.0); NEUTROPHILS # (AUTO) 6.6 K/uL (1.8-8.9); NEUTROPHILS % (AUTO) 66.6 % (43.0-81.0); PLATELET COUNT (AUTO) 154 K/uL (150-450); RED BLOOD CELL COUNT(AUTO) 3.98 MIL/uL (4.5-6.0); WHITE BLOOD COUNT (AUTO) 9.9 K/uL (4.3-11.0)
[2024-06-24 08:17] LABS: LACTIC ACID 6.1 mmol/L (0.4-2.0)
[2024-06-24 08:18] LABS: INR 1.08 (0.91-1.10); PARTIAL THROMBOPLASTIN TIME 25.6 SEC (24.3-34.3); PROTHROMBIN TIME 11.4 SECS (9.2-11.1)
[2024-06-24] MEDS ORDERED: CT SWABBABLE VALVE TRANS SET 1 EA INFUS.SET MC ONE (08:25)
[2024-06-24] MEDS ORDERED: IOHEXOL-300 100 ML VIAL IV ONE (08:25)
[2024-06-24] MEDS ORDERED: IV NS 0.9% 250 ML IV ONE (08:25)
[2024-06-24 08:28] LABS: APPEARANCE,URINE CLEAR (CLEAR); BILIRUBIN,URINE NEGATIVE (NEGATIVE); BLOOD, URINE NEGATIVE Ery/uL (NEGATIVE); COLOR,URINE YELLOW (YELLOW); KETONES,URINE 1+ mg/dL (NEGATIVE); LEUKOCYTE ESTERASE ,URINE NEGATIVE (NEGATIVE); NITRITE, URINE NEGATIVE (NEGATIVE); PROTEIN,URINE NEGATIVE (NEGATIVE); UGLUCOSE 2+ mg/dL (NEGATIVE); UROBILINOGEN,URINE 0.2 EU/dL (0.2)
[2024-06-24] MEDS ORDERED: APIX5TAB PO (08:40)
[2024-06-24] MEDS ORDERED: FERR-68 PO (08:40)
[2024-06-24] MEDS ORDERED: METO25TA6 PO (08:40)
[2024-06-24] MEDS ORDERED: ALFU10TA10 PO (08:40)
[2024-06-24] MEDS ORDERED: TOLT4CAP PO (08:40)
[2024-06-24] MEDS ORDERED: INSU100V7 SQ (08:40)
[2024-06-24] MEDS ORDERED: METF-440 PO (08:40)
[2024-06-24] MEDS ORDERED: FOLI0.4T6 PO (08:40)
[2024-06-24] MEDS ORDERED: AMLO5TAB4 PO (08:40)
[2024-06-24] MEDS ORDERED: SITA100T PO (08:40)
[2024-06-24 08:42] LABS: ADD URINE CULTURE NO; BACTERIA,URINE Rare /HPF (None Seen); RBC,URINE 0-2 /HPF (0-2); SQUAMOUS EPITHELIAL CELL,UR None Seen /HPF (None Seen); WBC,URINE 0-2 /HPF (0-3)
[2024-06-24] MEDS: VANCOMYCIN 1 GM in IV D5W 250 ML IV ONE (08:55)
[2024-06-24] MEDS: IV NS 0.9% 1,000 ML BAG IV ONE (09:00)
[2024-06-24] MEDS ORDERED: ONDANSETRON HCL/PF 4 MG/2 ML VIAL IVP PRN (13:00)
[2024-06-24] MEDS ORDERED: Z GUARD REMEDY 4 OZ OINT TP PRN (13:00)
[2024-06-24] MEDS ORDERED: MAG HYDROX/AL HYDROX/SIMETH 30 ML UDC PO PRN (13:00)
[2024-06-24] MEDS ORDERED: MAGNESIUM HYDROXIDE 30 ML UDC PO PRN (13:00)
[2024-06-24] MEDS ORDERED: ENOXAPARIN SODIUM 40 MG/0.4 ML DISP.SYRIN SQ SCH (13:00)
[2024-06-24] MEDS ORDERED: AMLODIPINE BESYLATE 5 MG TABLET ONE (13:10)
[2024-06-24] MEDS ORDERED: POTASSIUM CHLORIDE 20 MEQ TAB.PRT.SR PO ONE (13:11)
[2024-06-24] MEDS: POTASSIUM CHLORIDE 20 MEQ TAB.PRT.SR PO ONE (13:20)
[2024-06-24] MEDS: AMLODIPINE BESYLATE 5 MG TABLET PO SCH (13:21)
[2024-06-24 16:00] VITALS: BP 116/72; TEMP 98.4; O2SAT 95
[2024-06-24] MEDS ORDERED: DEXTROSE 50%-WATER 50 ML DISP.SYRIN IV PRN (17:00)
[2024-06-24] MEDS: METOPROLOL TARTRATE 25 MG TABLET PO SCH (17:08)
[2024-06-24] MEDS: TOLTERODINE 2 MG CAP.SR PO SCH (17:08)
[2024-06-24] MEDS: METFORMIN 500 MG TABLET PO SCH (17:08)
[2024-06-24] MEDS: BLOOD SUGAR DIAGNOSTIC 1 EACH STRIP IN SCH (17:09)
[2024-06-24] MEDS: APIXABAN 5 MG TABLET PO SCH (17:09)
[2024-06-24] MEDS: IV NS 0.9% 1,000 ML IV PRN (17:23)
[2024-06-24] MEDS: INSULIN REGULAR, HUMAN 100 UNIT/ML 3 ML VIAL SQ PRN (17:39)
[2024-06-24] MEDS: INSULIN GLARGINE, 100 UNIT/ML CARTRIDGE SQ SCH (17:41)
[2024-06-24] MEDS ORDERED: Medication Not On Formulary EA (Alfuzosin Hcl 10 MG) PO SCH (18:00)
[2024-06-24 20:00] VITALS: BP 103/62; TEMP 98.8; O2SAT 96
[2024-06-24] MEDS: CEFEPIME 2 GM in IV D5W 100 ML IV SCH (20:06)
[2024-06-24] MEDS: VANCOMYCIN 1 GM in IV D5W 250ml IV SCH (21:37)
[2024-06-25] VITALS: BP 121/64; TEMP 98.2; O2SAT 98
[2024-06-25 04:00] VITALS: BP 124/65; TEMP 98.4; O2SAT 98
[2024-06-25 07:34] LABS: BASOPHILS % (AUTO) 0.4 % (0.0-2.0); EOSINOPHILS # (AUTO) 0.1 K/uL (0.0-0.7); EOSINOPHILS % (AUTO) 1.2 % (0.0-6.0); HEMATOCRIT 32 % (39-51); HEMOGLOBIN 10.9 g/dL (13.5-17.5); LYMPHOCYTES # (AUTO) 1.1 K/uL (0.8-4.8); LYMPHOCYTES % (AUTO) 14.9 % (20.0-44.0); MEAN CORPUSCULAR HEMOGLOBIN 31 PG (26.0-33.0); MEAN CORPUSCULAR HGB CONC 34 g/dl (31.0-36.0); MEAN CORPUSCULAR VOLUME 90 fL (80-96); MONOCYTES # (AUTO) 0.9 K/uL (0.1-1.30); MONOCYTES % (AUTO) 11.3 % (2.0-12.0); NEUTROPHILS # (AUTO) 5.5 K/uL (1.8-8.9); NEUTROPHILS % (AUTO) 72.2 % (43.0-81.0); PLATELET COUNT (AUTO) 140 K/uL (150-450); RED BLOOD CELL COUNT(AUTO) 3.54 MIL/uL (4.5-6.0); RED CELL DISTRIBUTION WIDTH 15.2 % (11.5-15.0); WHITE BLOOD COUNT (AUTO) 7.6 K/uL (4.3-11.0)
[2024-06-25 07:47] LABS: LACTIC ACID 1.1 mmol/L (0.4-2.0)
[2024-06-25 07:51] LABS: ALBUMIN 2.9 g/dL (3.4-5.0); CALCIUM, SERUM 7.9 mg/dL (8.5-10.1); CARBON DIOXIDE 26 mmol/L (21-32); CHLORIDE 107 mmol/L (98-107); CREATININE 0.9 mg/dL (0.6-1.3); GLUCOSE 107 mg/dL (74-106); MAGNESIUM 1.6 mg/dL (1.8-2.4); NT-PRO BNP 406 pg/mL (0-125); PHOSPHORUS 3.1 mg/dL (2.5-4.9); POTASSIUM 3.9 mmol/L (3.5-5.1); SODIUM SERUM 141 mmol/L (136-145); UREA NITROGEN, BLOOD 8 mg/dL (7-18)
[2024-06-25 08:00] VITALS: BP 130/66; TEMP 98.9; O2SAT 98
[2024-06-25] MEDS: LINAGLIPTIN 5 MG TABLET PO SCH (08:49)
[2024-06-25] MEDS: FERROUS SULFATE (325 MG) 325 MG/TAB TABLET PO SCH (08:50)
[2024-06-25] MEDS: MAGNESIUM OXIDE 400 MG TABLET PO ONE (09:32)
[2024-06-25 12:00] VITALS: BP 116/71; TEMP 98; O2SAT 94
[2024-06-25 16:00] VITALS: BP 126/81; TEMP 99.1; O2SAT 96
[2024-06-25] MEDS: FOLIC ACID 1 MG TABLET PO SCH (17:02)
[2024-06-25 20:00] VITALS: BP 118/75; TEMP 98.2; O2SAT 98
[2024-06-26] VITALS: BP 120/79; TEMP 98; O2SAT 98
[2024-06-26 04:00] VITALS: BP 128/86; TEMP 98.2; O2SAT 97
[2024-06-26 07:38] LABS: BASOPHILS % (AUTO) 0.7 % (0.0-2.0); EOSINOPHILS # (AUTO) 0.1 K/uL (0.0-0.7); HEMATOCRIT 33 % (39-51); LYMPHOCYTES # (AUTO) 1.4 K/uL (0.8-4.8); MEAN CORPUSCULAR HEMOGLOBIN 30 PG (26.0-33.0); MEAN CORPUSCULAR HGB CONC 33 g/dl (31.0-36.0); MEAN CORPUSCULAR VOLUME 91 fL (80-96); MONOCYTES # (AUTO) 0.7 K/uL (0.1-1.30); MONOCYTES % (AUTO) 10.6 % (2.0-12.0); NEUTROPHILS # (AUTO) 4.5 K/uL (1.8-8.9); NEUTROPHILS % (AUTO) 66.7 % (43.0-81.0); PLATELET COUNT (AUTO) 154 K/uL (150-450); RED BLOOD CELL COUNT(AUTO) 3.65 MIL/uL (4.5-6.0); RED CELL DISTRIBUTION WIDTH 15.2 % (11.5-15.0); WHITE BLOOD COUNT (AUTO) 6.7 K/uL (4.3-11.0)
[2024-06-26 07:43] LABS: CALCIUM, SERUM 8.2 mg/dL (8.5-10.1); CREATININE 0.9 mg/dL (0.6-1.3); POTASSIUM 3.7 mmol/L (3.5-5.1)
[2024-06-26 08:00] VITALS: BP 120/71; TEMP 98; O2SAT 100
[2024-06-26 20:00] VITALS: BP 129/83; TEMP 98.8; O2SAT 96
[2024-06-26 23:33] VITALS: BP_SYST 128; BP_SYST 130; BP_SYST 146; BP_DIAS 72; BP_DIAS 81; BP_DIAS 89; O2SAT 98
[2024-06-27] VITALS: BP 130/82; TEMP 97.9; O2SAT 97
[2024-06-27 04:00] VITALS: BP 134/83; TEMP 98.1; O2SAT 98
[2024-06-27 07:39] LABS: BASOPHILS % (AUTO) 0.4 % (0.0-2.0); EOSINOPHILS # (AUTO) 0.1 K/uL (0.0-0.7); EOSINOPHILS % (AUTO) 1.7 % (0.0-6.0); HEMATOCRIT 30 % (39-51); HEMOGLOBIN 10.2 g/dL (13.5-17.5); LYMPHOCYTES # (AUTO) 1.4 K/uL (0.8-4.8); LYMPHOCYTES % (AUTO) 19.2 % (20.0-44.0); MEAN CORPUSCULAR HEMOGLOBIN 31 PG (26.0-33.0); MEAN CORPUSCULAR HGB CONC 34 g/dl (31.0-36.0); MEAN CORPUSCULAR VOLUME 91 fL (80-96); MONOCYTES # (AUTO) 0.8 K/uL (0.1-1.30); MONOCYTES % (AUTO) 11.5 % (2.0-12.0); NEUTROPHILS # (AUTO) 4.7 K/uL (1.8-8.9); NEUTROPHILS % (AUTO) 67.2 % (43.0-81.0); PLATELET COUNT (AUTO) 152 K/uL (150-450); RED BLOOD CELL COUNT(AUTO) 3.29 MIL/uL (4.5-6.0); RED CELL DISTRIBUTION WIDTH 14.9 % (11.5-15.0)
[2024-06-27 08:18] LABS: CALCIUM, SERUM 7.4 mg/dL (8.5-10.1); CREATININE 0.8 mg/dL (0.6-1.3); POTASSIUM 3.1 mmol/L (3.5-5.1)
[2024-06-27] MEDS: POTASSIUM CHLORIDE 20 MEQ TAB.PRT.SR PO SCH (09:55)
[2024-06-27] MEDS ORDERED: CIPR500S2 PO (11:58)
[2024-06-27 23:34] VITALS: BP 140/87; TEMP 98.6; O2SAT 97
[2024-06-28] MEDS: ACETAMINOPHEN 325 MG TABLET PO PRN (03:22)
[2024-06-28 07:30] VITALS: BP 128/90; TEMP 98.2; O2SAT 98
[2024-06-28 07:40] LABS: CALCIUM, SERUM 8.2 mg/dL (8.5-10.1); CREATININE 0.8 mg/dL (0.6-1.3); POTASSIUM 3.8 mmol/L (3.5-5.1)
[2024-06-28 11:54] VITALS: TEMP 98.2
[2024-06-28 17:15] VITALS: BP 113/62
== END 2024-06-28 17:40 | disposition home health service (06) | DRG 640 ==
LOC: ER 07:27 → TELE 14:05 → MED 06-27 10:31
PROVIDERS: ADMIT Nurse Practitioner Family; ATTEND Nurse Practitioner Family
DX: E86.0 Dehydration (principal); G93.41 Metabolic encephalopathy; I48.20 Chronic atrial fibrillation, unspecified; E87.1 Hypo-osmolality and hyponatremia; E87.20 Acidosis, unspecified; E11.22 Type 2 diabetes mellitus with diabetic chronic kidney disease; E87.6 Hypokalemia; N40.0 Benign prostatic hyperplasia without lower urinary tract symptoms; Z79.4 Long term (current) use of insulin; Z79.01 Long term (current) use of anticoagulants; Z79.84 Long term (current) use of oral hypoglycemic drugs; Z88.0 Allergy status to penicillin; R53.1 Weakness; D63.8 Anemia in other chronic diseases classified elsewhere; Z86.73 Personal history of transient ischemic attack (TIA), and cerebral infarction without residual deficits; R11.2 Nausea with vomiting, unspecified; Z91.81 History of falling; K52.9 Noninfective gastroenteritis and colitis, unspecified; I10 Essential (primary) hypertension
CPT/HCPCS: 36415; 70450-TC; 71045-TC; 72125-TC; 80048-TC; 80061-TC; 80076-TC; 80202-TC; 81001; 82040-TC; 82962-TC; 83605-TC; 83690-TC; 83735-TC; 83880; 84100-TC; 84484-TC; 85025-TC; 85730-TC; 87040-TC; 87081-TC; 87086-TC; 93307-TC; 97110-TC; 97116-TC; 97530-TC; A4223; G0378; J0692; J1815; J2405; J3370; J7030; J7050; J7060; Q9967